=== PATIENT | male | born 1995 ===

== ENCOUNTER 2022-11-23 08:33 | Emergency (ER) | payer SELFPAY ==
[~2022-11-23] VITALS: Ht 190.5 cm; Wt 111.1 kg
[2022-11-23 08:37] VITALS: BP 143/96; PULSE 76; RESP 20; TEMP 98.4; O2SAT 99
== END 2022-11-23 18:17 | disposition left against medical advice (07) ==
LOC: ER 08:33
DX: R04.2 Hemoptysis (principal); Z53.21 Procedure and treatment not carried out due to patient leaving prior to being seen by health care provider
CPT/HCPCS: 99281